=== PATIENT | male | born 1995 | race Caucasian/White ===

== ENCOUNTER 2017-12-02 01:33 | Emergency (ER) | payer SELFPAY ==
--- NOTE | 2017-12-02 02:24 | C.PDOC ---
History Of Present Illness patient states that he has had some left testicular swelling and discomfort for about 3 days, after intercourse., Denies any f/c/n/v , penile discharge, or urinary symptoms. ambulating without any difficulty Time Seen by Provider: 12/02/17 02:24 Chief Complaint (Nursing): Male Genitourinary History Per: Patient History/Exam Limitations: no limitations Onset/Duration Of Symptoms: Days (3) Current Symptoms Are (Timing): Gone Severity: Mild Pain Scale Rating Of: 2 Quality Of Discomfort: Dull, Aching Associated Symptoms: denies: Fever, Chills, Nausea, Vomiting Alleviating Factors: None Recent travel outside of the [place]: No Additional History Per: Patient Past Medical History Reviewed: Historical Data, Nursing Documentation, Vital Signs Vital Signs: Last Vital Signs Temp 98.1 F 12/02/17 01:36 Pulse 78 12/02/17 01:36 Resp 20 12/02/17 01:36 BP 108/69 12/02/17 01:36 Pulse Ox 98 12/02/17 02:41 Family History: States: No Known Family Hx - Social History Hx Alcohol Use: No Hx Substance Use: No (pt denies) Review Of Systems Constitutional: Negative for: Fever, Chills Gastrointestinal: Negative for: Nausea, Vomiting, Abdominal Pain Genitourinary: Positive for: Scrotal Pain (resolved). Negative for: Dysuria, Frequency, Hematuria, Penile Discharge, Rash, Penile Pain Musculoskeletal: Negative for: Back Pain Skin: Negative for: Rash Neurological: Negative for: Weakness Psych: Positive for: Anxiety Physical Exam - Physical Exam Appears: Non-toxic, No Acute Distress Gastrointestinal/Abdominal: Soft, No Tenderness, No Distention, No Guarding Male Genital: No Testicular Tenderness, No Testicular Swelling, No Inguinal Tenderness, No Inguinal Swelling, No Scrotal Swelling, No Circumcised, Other ( no discharge) Neurological/Psych: Oriented x3 Gait: Steady ED Course And Treatment O2 Sat by Pulse Oximetry: 98 Pulse Ox Interpretation: Normal Medical Decision Making Medical Decision Making: Upon provider reevaluation patient is feeling better, is medically stable, and requires no further treatment in the ED at this time. Patient will be discharged home . Counseling was provided and all questions were answered regarding diagnosis and need for follow up with the referred clinic. There is agreement to discharge plan. Return if symptoms persist or worsen. Disposition Counseled Patient/Family Regarding: Studies Performed, Diagnosis, Need For Followup - Disposition Referrals: Morgan Tate MD [Staff Provider] - Disposition: HOME/ ROUTINE Disposition Time: 02:24 Condition: FAIR Additional Instructions: Please return if symptoms recur Instructions: How to Perform a Testicular Self-Exam, Groin Strain (DC) Forms: [employer] (Thai) - Clinical Impression Clinical Impression: Inguinal strain
[2017-12-02 03:28] VITALS: BP 100/62; PULSE 63; RESP 14; TEMP 97.4; O2SAT 99
== END 2017-12-02 03:28 | disposition home or self-care (01) ==
LOC: C.ER 01:33
DX: S39.011A Strain of muscle, fascia and tendon of abdomen, initial encounter (principal); X58.XXXA Exposure to other specified factors, initial encounter